=== PATIENT | female | born 1985 | race African-American/Black ===

== ENCOUNTER 2016-05-08 15:37 | Observation (INO) | payer MEDICAID, OTHER ==
[2016-05-08] VITALS (7 sets, daily range): BP systolic 107–128; BP diastolic 59–75; PULSE 69–82; RESP 16–18; TEMP 97.3–98.9; O2SAT 97–100
[~2016-05-08] VITALS: Ht 165.1 cm; Wt 83.0 kg
[~2016-05-08 15:37] MED LIST: IBUP800T23 PO; Z.0.BCPILL PO
--- NOTE | 2016-05-08 15:56 | PD ---
HPI Chief Complaint: Chest Pain Time Seen by Provider: 15:56 Travel History International Travel<30 days: No Contact w/Intl Traveler<30days: No Traveled to known affect area: No History of Present Illness HPI 30-year-old female with no significant medical history, presents to the emergency department today for evaluation of left-sided chest pain. Patient states that the last couple weeks she has been having intermittent sharp pain on the left side of her chest. She got indigestion. She states today it became more noticeable, constant, and pain. She states it went into her left arm and up to her left ear. There is mild nausea associated with it. No vomiting. No shortness of breath. No recent illnesses, fever, or chills. She has no cardiac history herself. Denies illicit drug use. Denies tobacco cigarette smoking or alcohol consumption. Patient states that her mother did have a heart attack in her 40s. She has no other symptoms reported PFSH Past Medical History Cardiovascular Problems: Yes (HEART MURMUR CHILD) Diminished Hearing: No ?: Not LMP: 05/04/16 : 1 Para: 1 Past Surgical History Section: Yes Gynecologic Surgery: Yes (C SECTION ) Tonsillectomy: Yes Social History Alcohol Use: No Tobacco Use: No Substance Use: No Allergies-Medications (Allergen,Severity, Reaction): Coded Allergies: No Known Allergies (Verified , 05/08/16) Reported Meds & Prescriptions Reported Meds & Active Scripts Active Review of Systems Except as stated in HPI: all other systems reviewed are Neg Physical Exam Narrative GENERAL: Well-nourished female patient, ambulatory and in no acute distress SKIN: Warm and dry. HEAD: Atraumatic. Normocephalic. EYES: Pupils equal and round. No scleral icterus. No injection or drainage. ENT: No nasal bleeding or discharge. Mucous membranes pink and moist. NECK: Trachea midline. No JVD. CARDIOVASCULAR: Regular rate and rhythm. No murmur appreciated. RESPIRATORY: No accessory muscle use. Clear to auscultation. Breath sounds equal bilaterally. GASTROINTESTINAL: Abdomen soft, non-tender, nondistended. Hepatic and splenic margins not palpable. MUSCULOSKELETAL: No obvious deformities. No clubbing. No cyanosis. No edema. NEUROLOGICAL: Awake and alert. No obvious cranial nerve deficits. Motor grossly within normal limits. Normal speech. PSYCHIATRIC: Appropriate mood and affect; insight and judgment normal. Data Data Last Documented VS Vital Signs Date Time Temp Pulse Resp B/P Pulse Ox O2 Delivery O2 Flow Rate FiO2 05/08/16 15:58 98 Room Air 05/08/16 15:58 18 05/08/16 15:57 118/68 108/59 05/08/16 15:39 98.4 74 Orders Electrocardiogram (05/08/16 ) Ckmb (Isoenzyme) Profile (05/08/16 15:55) Complete Blood Count With Diff (05/08/16 15:55) Comprehensive Metabolic Panel (05/08/16 15:55) Magnesium (Mg) (05/08/16 15:55) Prothrombin Time / Inr (Pt) (05/08/16 15:55) Act Partial Throm Time (Ptt) (05/08/16 15:55) Troponin I (05/08/16 15:55) Chest, Single Ap (05/08/16 15:55) Ecg Monitoring (05/08/16 15:55) Bilateral Bp Monitoring (05/08/16 15:55) Iv Access Insert/Monitor (05/08/16 15:55) Oximetry (05/08/16 15:55) Oxygen Administration (05/08/16 15:55) Sodium Chloride 0.9% Flush (Ns Flush) (05/08/16 16:00) Ed Urine Pregnancytest Poc (05/08/16 15:55) Urinalysis - C+S If Indicated (05/08/16 15:55) CKMB (05/08/16 16:20) CKMB% (05/08/16 16:20) Urine Culture (05/08/16 16:50) Activity Bed Rest With Brp (05/08/16 18:16) Vital Signs (Adult) Q4H (05/08/16 18:16) Cardiac Rhythm .As Directed (05/08/16 18:16) ^ Notify Dr: Other .PRN (05/08/16 18:16) ^ Notify Dr. Parameters (05/08/16 18:16) Resp Oxygen Nasal Cannula (05/08/16 ) Diet Heart Healthy (05/08/16 Dinner) Ckmb (Isoenzyme) Profile (05/08/16 19:20) Ckmb (Isoenzyme) Profile (05/08/16 22:20) Troponin I (05/08/16 19:20) Troponin I (05/08/16 22:20) Electrocardiogram (05/08/16 18:50) Electrocardiogram (05/08/16 21:50) ^ Obtain (05/08/16 18:16) Sodium Chloride 0.9% Flush (Ns Flush) (05/08/16 18:30) Sodium Chloride 0.9% Flush (Ns Flush) (05/08/16 21:00) Acetaminophen (Tylenol) (05/08/16 18:30) Ondansetron Inj (Zofran Inj) (05/08/16 18:30) Nitroglycerin Sl (Nitrostat Sl) (05/08/16 18:30) Chief Administrative Officer / Telemetry SAÚL.Q8H (05/08/16 18:16) Jabari Bilateral/Knee High SAÚL.QSHIFT (05/08/16 18:16) Admit Order (Ed Use Only) (05/08/16 18:16) Labs Laboratory Tests Test 05/08/16 05/08/16 16:20 16:50 White Blood Count 7.2 TH/MM3 Red Blood Count 3.96 MIL/MM3 Hemoglobin 10.3 GM/DL Hematocrit 31.9 % Mean Corpuscular Volume 80.4 FL Mean Corpuscular Hemoglobin 26.0 PG Mean Corpuscular Hemoglobin 32.3 % Concent Red Cell Distribution Width 15.7 % Platelet Count 266 TH/MM3 Mean Platelet Volume 9.0 FL Neutrophils (%) (Auto) 55.4 % Lymphocytes (%) (Auto) 35.8 % Monocytes (%) (Auto) 7.4 % Eosinophils (%) (Auto) 0.8 % Basophils (%) (Auto) 0.6 % Neutrophils # (Auto) 4.0 TH/MM3 Lymphocytes # (Auto) 2.6 TH/MM3 Monocytes # (Auto) 0.5 TH/MM3 Eosinophils # (Auto) 0.1 TH/MM3 Basophils # (Auto) 0.0 TH/MM3 CBC Comment DIFF FINAL Differential Comment Prothrombin Time 10.3 SEC Prothromb Time International 0.9 RATIO Ratio Activated Partial 28.9 SEC Thromboplast Time Sodium Level 138 MEQ/L Potassium Level 4.5 MEQ/L Chloride Level 107 MEQ/L Carbon Dioxide Level 25.3 MEQ/L Anion Gap 6 MEQ/L Blood Urea Nitrogen 10 MG/DL Creatinine 0.81 MG/DL Estimat Glomerular Filtration 101 ML/MIN Rate Random Glucose 84 MG/DL Calcium Level 8.4 MG/DL Magnesium Level 1.8 MG/DL Total Bilirubin 0.2 MG/DL Aspartate Amino Transf 33 U/L (AST/SGOT) Alanine Aminotransferase 16 U/L (ALT/SGPT) Alkaline Phosphatase 34 U/L Total Creatine Kinase 412 U/L Creatine Kinase MB 0.6 NG/ML Creatine Kinase MB % 0.1 % Troponin I LESS THAN 0.02 NG/ML Total Protein 7.4 GM/DL Albumin 3.0 GM/DL Urine Color YELLOW Urine Turbidity CLEAR Urine pH 6.5 Urine Specific [place] 1.008 Urine Protein TRACE mg/dL Urine Glucose (UA) NEG mg/dL Urine Ketones NEG mg/dL Urine Occult Blood MOD Urine Nitrite NEG Urine Bilirubin NEG Urine Urobilinogen LESS THAN 2.0 MG/DL Urine Leukocyte Esterase NEG Urine RBC /hpf Urine WBC 14 /hpf Urine Squamous Epithelial 1 /hpf Cells Microscopic Urinalysis Comment CULTURE INDICATED MDM Medical Decision Making Medical Screen Exam Complete: Yes Emergency Medical Condition: Yes Medical Record Reviewed: Yes Differential Diagnosis Indigestion versus ACS versus atypical chest pain versus chest wall pain versus pleurisy versus costochondritis Narrative Course 30 year-old female presents to emergency department for evaluation. Patient appears without distress. Her vital signs are stable. EKG is without acute ST elevation or depression, reviewed my attending physician. CBC and CMP are without acute concerns. Hemoglobin is 10.9. Total creatinine since 412. Troponin is less than 0.02. Urinalysis is with moderate occult blood and innumerable RBCs, patient is on her menses cycle. 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 She recommends placing the patient in the chest pain center as observation for further evaluation. Plan is discussed the patient and she is in agreement to this plan of care. Diagnosis Primary Impression: Chest pain Qualified Code: R07.9 - Chest pain, unspecified type Condition: Stable Gabby Marks May 08, 2016 15:56
[2016-05-08] MEDS ORDERED: SODIUM CHLORIDE 0.9% FLUSH 5 ML FLUSH IVF PRN ×2 (16:00→18:30)
--- NOTE | 2016-05-08 17:02 | RADRPT ---
EXAM DATE/TIME: 05/08/2016 16:37 [facility] COMPARISON: CHEST SINGLE AP, December 10, 2015, 15:29. INDICATIONS : Chest pain, shortness of breath for 24 hours MEDICAL HISTORY : None. SURGICAL HISTORY : None. ENCOUNTER: Initial ACUITY: 1 day PAIN SCORE: 6/10 LOCATION: Left chest FINDINGS: A single view of the chest demonstrates the lungs to be symmetrically aerated without evidence of mas s, infiltrate or effusion. The cardiomediastinal contours are unremarkable. Osseous structures are intact. CONCLUSION: The lungs are clear. Irwin Huizar MD on May 08, 2016 at 17:01 Board Certified Radiologist. This report was verified electronically.
[2016-05-08 17:03] LABS: BASOPHIL % 0.6 % (0.0-2.0); EOSINOPHIL # 0.1 TH/MM3 (0-0.4); EOSINOPHIL % 0.8 % (0.0-4.0); HEMATOCRIT 31.9 % (35.0-46.0); HEMO FLAGS DIFF FINAL; LYMPH % 35.8 % (9.0-44.0); LYMPHOCYTE # 2.6 TH/MM3 (1.0-4.8); MEAN CELL VOLUME 80.4 FL (80.0-100.0); MEAN CORPUSCULAR HGB CONC 32.3 % (32.0-36.0); MONO % 7.4 % (0.0-8.0); NEUT % 55.4 % (16.0-70.0); PLATELET COUNT 266 TH/MM3 (150-450); RED BLOOD COUNT 3.96 MIL/MM3 (4.00-5.30); RED CELL DISTRIBUTION WIDTH 15.7 % (11.6-17.2); WHITE BLOOD COUNT 7.2 TH/MM3 (4.0-11.0)
[2016-05-08 17:26] LABS: APTT (PATIENT) 28.9 SEC (24.3-30.1); INTERNATIONAL NORMALIZED RATIO 0.9 RATIO; PROTHROMBIN TIME - PATIENT 10.3 SEC (9.8-11.6)
[2016-05-08 17:36] LABS: ALT (GPT) 16 U/L (10-53); ANION GAP 6 MEQ/L (5-15); AST (GOT) 33 U/L (15-37); BICARBONATE 25.3 MEQ/L (21.0-32.0); BLOOD UREA NITROGEN 10 MG/DL (7-18); CHLORIDE 107 MEQ/L (98-107); GLOMERULAR FILTRATION RATE 101 ML/MIN (>89); MAGNESIUM 1.8 MG/DL (1.5-2.5); POTASSIUM 4.5 MEQ/L (3.5-5.1); SODIUM (NA) 138 MEQ/L (136-145)
[2016-05-08 17:41] LABS: ALKALINE PHOSPHATASE 34 U/L (45-117); CREATINE KINASE 412 U/L (26-192); TOTAL BILIRUBIN ADULT 0.2 MG/DL (0.2-1.0)
[2016-05-08 17:43] LABS: BLOOD, URINE MOD (NEG); COMMENT (UR) CULTURE INDICATED; CULTURE IF INDICATED CULTURE INDICATED; GLUCOSE,URINE NEG (NEG); KETONE, URINE NEG (NEG); NITRITE,URINE NEG (NEG); PH, URINE 6.5 (5.0-8.5); SQUAMOUS EPITHELIAL CELL URINE 1 /hpf (0-5); URINE COLOR YELLOW (YELLW/STRAW)
[2016-05-08 17:53] LABS: CKMB 0.6 NG/ML (0.5-3.6)
[2016-05-08] MEDS ORDERED: OFFICE MEDICATION (18:20)
--- NOTE | 2016-05-08 18:29 | PD ---
Physical Exam Date Seen by Provider: May 08, 2016 Time Seen by Provider: 17:00 Narrative I, Dr. Awad, have reviewed the advance practice practitioner's documentation and am in agreement, met with the patient face to face, made the diagnosis, and the medical decision making was done by me. *My assessment and Findings: Patient seen and evaluated with PA, has previous family history of [place], mother at age of 40, patient coming in with left sided chest pain radiating to the neck and arm. EKG initially did not show any signs of acute ST-T changes. Pulses are present and equal bilaterally. Pulmonary exam is unremarkable. Abdominal exam is unremarkable. Laboratory Tests Test 05/08/16 05/08/16 16:20 16:50 Red Blood Count 3.96 MIL/MM3 (4.00-5.30) Hemoglobin 10.3 GM/DL (11.6-15.3) Hematocrit 31.9 % (35.0-46.0) Mean Corpuscular Hemoglobin 26.0 PG (27.0-34.0) Calcium Level 8.4 MG/DL (8.5-10.1) Alkaline Phosphatase 34 U/L (45-117) Total Creatine Kinase 412 U/L (26-192) Troponin I LESS THAN 0.02 NG/ML (0.02-0.05) Albumin 3.0 GM/DL (3.4-5.0) Urine Occult Blood MOD (NEG) Urine WBC 14 /hpf (0-5) Last 24 hours Impressions Chest X-Ray 05/08/16 1555 Signed Impressions: Service Date/Time: Sunday, May 08, 2016 16:37 - CONCLUSION: The lungs are clear. Irwin Huizar MD Initial cardiac enzymes are negative. Vital signs are stable in the ER. Chest x-ray did not show any signs of acute pulmonary processes. At this point, my plan would be to admit her for further evaluation her chest pain. Data Data Last Documented VS Vital Signs Date Time Temp Pulse Resp B/P Pulse Ox O2 Delivery O2 Flow Rate FiO2 05/08/16 15:58 98 Room Air 05/08/16 15:58 18 05/08/16 15:57 118/68 108/59 05/08/16 15:39 98.4 74 Orders Electrocardiogram (05/08/16 ) Ckmb (Isoenzyme) Profile (05/08/16 15:55) Complete Blood Count With Diff (05/08/16 15:55) Comprehensive Metabolic Panel (05/08/16 15:55) Magnesium (Mg) (05/08/16 15:55) Prothrombin Time / Inr (Pt) (05/08/16 15:55) Act Partial Throm Time (Ptt) (05/08/16 15:55) Troponin I (05/08/16 15:55) Chest, Single Ap (05/08/16 15:55) Ecg Monitoring (05/08/16 15:55) Bilateral Bp Monitoring (05/08/16 15:55) Iv Access Insert/Monitor (05/08/16 15:55) Oximetry (05/08/16 15:55) Oxygen Administration (05/08/16 15:55) Sodium Chloride 0.9% Flush (Ns Flush) (05/08/16 16:00) Ed Urine Pregnancytest Poc (05/08/16 15:55) Urinalysis - C+S If Indicated (05/08/16 15:55) CKMB (05/08/16 16:20) CKMB% (05/08/16 16:20) Urine Culture (05/08/16 16:50) Activity Bed Rest With Brp (05/08/16 18:16) Vital Signs (Adult) Q4H (05/08/16 18:16) Cardiac Rhythm .As Directed (05/08/16 18:16) ^ Notify Dr: Other .PRN (05/08/16 18:16) ^ Notify Dr. Parameters (05/08/16 18:16) Resp Oxygen Nasal Cannula (05/08/16 ) Diet Heart Healthy (05/08/16 Dinner) Ckmb (Isoenzyme) Profile (05/08/16 19:20) Ckmb (Isoenzyme) Profile (05/08/16 22:20) Troponin I (05/08/16 19:20) Troponin I (05/08/16 22:20) Electrocardiogram (05/08/16 18:50) Electrocardiogram (05/08/16 21:50) ^ Obtain (05/08/16 18:16) Sodium Chloride 0.9% Flush (Ns Flush) (05/08/16 18:30) Sodium Chloride 0.9% Flush (Ns Flush) (05/08/16 21:00) Acetaminophen (Tylenol) (05/08/16 18:30) Ondansetron Inj (Zofran Inj) (05/08/16 18:30) Nitroglycerin Sl (Nitrostat Sl) (05/08/16 18:30) Ornamental Iron Worker / Telemetry SAÚL.Q8H (05/08/16 18:16) Jabari Bilateral/Knee High SAÚL.QSHIFT (05/08/16 18:16) Admit Order (Ed Use Only) (05/08/16 18:16) Labs Laboratory Tests Test 05/08/16 05/08/16 16:20 16:50 White Blood Count 7.2 TH/MM3 Red Blood Count 3.96 MIL/MM3 Hemoglobin 10.3 GM/DL Hematocrit 31.9 % Mean Corpuscular Volume 80.4 FL Mean Corpuscular Hemoglobin 26.0 PG Mean Corpuscular Hemoglobin 32.3 % Concent Red Cell Distribution Width 15.7 % Platelet Count 266 TH/MM3 Mean Platelet Volume 9.0 FL Neutrophils (%) (Auto) 55.4 % Lymphocytes (%) (Auto) 35.8 % Monocytes (%) (Auto) 7.4 % Eosinophils (%) (Auto) 0.8 % Basophils (%) (Auto) 0.6 % Neutrophils # (Auto) 4.0 TH/MM3 Lymphocytes # (Auto) 2.6 TH/MM3 Monocytes # (Auto) 0.5 TH/MM3 Eosinophils # (Auto) 0.1 TH/MM3 Basophils # (Auto) 0.0 TH/MM3 CBC Comment DIFF FINAL Differential Comment Prothrombin Time 10.3 SEC Prothromb Time International 0.9 RATIO Ratio Activated Partial 28.9 SEC Thromboplast Time Sodium Level 138 MEQ/L Potassium Level 4.5 MEQ/L Chloride Level 107 MEQ/L Carbon Dioxide Level 25.3 MEQ/L Anion Gap 6 MEQ/L Blood Urea Nitrogen 10 MG/DL Creatinine 0.81 MG/DL Estimat Glomerular Filtration 101 ML/MIN Rate Random Glucose 84 MG/DL Calcium Level 8.4 MG/DL Magnesium Level 1.8 MG/DL Total Bilirubin 0.2 MG/DL Aspartate Amino Transf 33 U/L (AST/SGOT) Alanine Aminotransferase 16 U/L (ALT/SGPT) Alkaline Phosphatase 34 U/L Total Creatine Kinase 412 U/L Creatine Kinase MB 0.6 NG/ML Creatine Kinase MB % 0.1 % Troponin I LESS THAN 0.02 NG/ML Total Protein 7.4 GM/DL Albumin 3.0 GM/DL Urine Color YELLOW Urine Turbidity CLEAR Urine pH 6.5 Urine Specific [place] 1.008 Urine Protein TRACE mg/dL Urine Glucose (UA) NEG mg/dL Urine Ketones NEG mg/dL Urine Occult Blood MOD Urine Nitrite NEG Urine Bilirubin NEG Urine Urobilinogen LESS THAN 2.0 MG/DL Urine Leukocyte Esterase NEG Urine RBC /hpf Urine WBC 14 /hpf Urine Squamous Epithelial 1 /hpf Cells Microscopic Urinalysis Comment CULTURE INDICATED MDM Medical Record Reviewed: Yes Supervised Visit with BRANDI: Yes Diagnosis Primary Impression: Chest pain Qualified Code: R07.9 - Chest pain, unspecified type Admitting Information Admitting Physician Requests: Admit Condition: Stable Ad Awad MD May 08, 2016 18:29
[2016-05-08] MEDS ORDERED: ACETAMINOPHEN 500 MG CPLT PO PRN (18:30)
[2016-05-08] MEDS ORDERED: ONDANSETRON HCL 4 MG/2 ML VIAL IV PRN (18:30)
[2016-05-08] MEDS ORDERED: TEMAZEPAM 15 MG CAP PO PRN (20:15)
[2016-05-08] MEDS ORDERED: IBUPROFEN 800 MG TAB PO PRN (20:15)
[2016-05-08 20:33] LABS: CREATINE KINASE 403 U/L (26-192)
[2016-05-08 20:46] LABS: CKMB 0.7 NG/ML (0.5-3.6)
[2016-05-08] MEDS: SODIUM CHLORIDE 0.9% FLUSH 5 ML FLUSH IVF SCH (21:18)
[2016-05-08] MEDS: NITROGLYCERIN 0.4 MG SL 25 TABS/BTL SL PRN ×2 (21:18→22:50)
[2016-05-08 23:19] LABS: CREATINE KINASE 361 U/L (26-192)
[2016-05-08 23:31] LABS: CKMB LESS THAN 0.5 NG/ML (0.5-3.6)
[2016-05-09] VITALS (8 sets, daily range): BP systolic 114–120; BP diastolic 57–70; PULSE 61–84; RESP 18–20; TEMP 97.4–98.3; O2SAT 97–98
[2016-05-09] MEDS: SODIUM CHLORIDE 0.9% FLUSH 5 ML FLUSH IVF SCH (08:47)
[2016-05-09] MEDS ORDERED: ASPIRIN 325 MG TAB PO SCH (09:00)
--- NOTE | 2016-05-09 12:36 | EKG ---
Date Performed: 05/08/2016 Time Performed: 15:49:31 PTAGE: 30 years EKG: Sinus rhythm NORMAL ECG PREVIOUS TRACING : 12/10/2015 15.24 DOCTOR: Nate Agustin Interpretating Date/Time 05/09/2016 12:34:31
--- NOTE | 2016-05-09 12:37 | EKG ---
Date Performed: 05/08/2016 Time Performed: 18:48:57 PTAGE: 30 years EKG: Sinus rhythm NORMAL ECG PREVIOUS TRACING : 05/08/2016 15.49 DOCTOR: Nate Agustin Interpretating Date/Time 05/09/2016 12:35:47
--- NOTE | 2016-05-09 12:37 | EKG ---
Date Performed: 05/08/2016 Time Performed: 22:24:03 PTAGE: 30 years EKG: Sinus rhythm NORMAL ECG PREVIOUS TRACING : 05/08/2016 18.48 DOCTOR: Nate Agustin Interpretating Date/Time 05/09/2016 12:36:35
--- NOTE | 2016-05-09 12:44 | TR ---
Date Performed: 05/09/2016 Time Performed: 09:25:30 DOCTOR: Nate Agustin DRUG LIST: CLINICAL HISTORY: REASON FOR TEST: REASON FOR ENDING: OBSERVATION: CONCLUSION: Amanuel protocol completed. Stopped sec to reaching target heart rate and leg fatigue. Maximum WO=464 Target UP=479 Maximum DA=194/88 Total Exercise Time=8:41. No ectopy. No st t changes to sugg ischemia. Good exercise tolerance. Normal bp response. Recovery quick and unremarkable. COMMENTS: CONCLUSION: Normal exercise treadmill. No evidence of ischemia.
--- NOTE | 2016-05-09 13:02 | MH ---
cc: RAMU SARAH DATE OF ADMISSION: 05/08/2016 DATE OF : 1985 CHIEF COMPLAINT: Chest pain. HISTORY OF PRESENT ILLNESS: This is a 30 year-old patient with no significant past medical history, presents to the emergency room for further evaluation of chest pain for the past three days. The location is in her left axillary area, characterized as a pain coming from front to back of her chest. The patient describes the pain as a sharp pain that has been constant for the past three days, however, yesterday there was radiation to her left arm, left jaw, left ear and left shoulder and also noticed her vision was blurred. Associated symptoms included mild shortness of breath and lightheadedness. She denied any nausea, vomiting or diaphoresis. It did not hurt necessarily to take a big deep breath in. No known precipitating factors. She has not recently traveled or has had trauma to the area. She states she has had chest discomfort in the past and was actually evaluated in this emergency room and was told to take Motrin. She had some Motrin left over and has been taking that for the past couple of days with some relief, however, not total relieved and was encouraged by her aunt to come in for further evaluation. No known preciptating factors or relieving factors. PAST MEDICAL HISTORY: None. PAST SURGICAL HISTORY: 1. 2. Tonsillectomy. FAMILY HISTORY: Mother had a heart attack in her mid 40s. She is still alive. She has hypertension and diabetes. Father has hypertension and diabetes. Brother hypertension and a sister recently diagnosed with type 2 diabetes, and she is younger than the patient. SOCIAL HISTORY: She is a lifelong nonsmoker. Denies any alcohol or illegal drug use. No known hypertension, diabetes or hyperlipidemia. She works at [employer] and also a [employer] center and has a 5 year-old son. Other than working and taking care of her young son, she has not performed any daily exercise. PAST CARDIAC TESTING None. She was seen in the emergency room April 2015. At that time a mandatory outpatient cardiology consult was made for possible further testing with a Holter monitor and stress test. The patient did not follow with a clinical engineer as her pain improved with the Motrin. ALLERGIES: None. MEDICATIONS: The only medications she takes is her control and One-A-Day multivitamin. REVIEW OF SYSTEMS: GENERAL: She has been in a general state of health with no recent illness or travel. No malaise, fever, chills or change in appetite. HEENT: No headache, or vision changes, otherwise as stated above. No nasal congestion, drainage or dysphagia. She has been known to have headaches in the past which she describes as migraines. CARDIAC: As stated above. Continues to have some chest discomfort in her left anterior chest and into her axillary area, left arm, and jaw pain. All improved. No intermittent leg pain. Dizziness is also improved, actually is gone. RESPIRATORY: No shortness of breath, cough, wheezing or hemoptysis. No recent upper respiratory infection. ABDOMEN: No diarrhea, constipation, pain, distension, blood in stool or dark stool. No nausea or vomiting. : No dysuria, urgency, frequency or hematuria. She was told in the emergency room that she has a urinary tract infection, however, UA was collected and the patient is currently on her menses and she does not have any symptoms or known frequent urinary tract infection. EXTREMITIES: No lower leg edema or pain. MUSCULOSKELETAL: No change in ROM. NEUROLOGIC: No difficulty with balance, motor or sensory deficits, loss of consciousness, seizure activity. PSYCHIATRIC: No anxiety or depression. Her family has mentioned maybe her pain is from stress. SKIN: No rashes or concerning lesions. PHYSICAL EXAMINATION: VITAL SIGNS: Temperature 98.3, pulse 74, respiratory rate 18, blood pressure 120/57, 98% on room air. GENERAL: Alert, well-developed, well-nourished, in no acute distress, pleasant -[place] female. HEAD: Normocephalic, atraumatic. EYES: Sclera clear. Conjunctivae without injection. ENT: Mucous membranes are pink and moist. NECK: Supple. Trachea midline. CARDIOVASCULAR: Regular rate and rhythm without murmurs, rubs, or gallops. S1-S2, no S3-S4. No JVD. RESPIRATORY: Clear lungs throughout bilateral with no crackles, wheeze or rhonchi. She is nonlabored, able to speak in full sentences with symmetrical chest rise. ABDOMEN: Soft, non-tender, non-distended. No masses. Positive bowel tones. BACK: No CVA tenderness. No scoliosis. EXTREMITIES: Pulses +2 x4, no dependent edema. MUSCULOSKELETAL: Normal tone x4. Nontender. No obvious deformities. NEUROLOGIC: CN II-XII is grossly intact. Motor strength 5/5. PSYCHIATRIC: Alert, oriented x3. Pleasant affect. ADDENDUM LABORATORY: Hemoglobin is 10.3, hematocrit of 31.9, MCH 26 otherwise unremarkable. Chemistry also unremarkable. Albumin is 3.0, TSH is within normal limits. Erythrocyte sedimentation rate 55. Coagulation is unremarkable. Rheumatoid factor and MARY screen are negative. UA completed showed moderate to call blood in urine WBCs of 14, however sample was collected while the patient is on her menses Chest x-ray Read by radiologist has conclusion of the lungs are clear and a CT of her head has a conclusion of normal examination for the patient of this age. Three EKG's show normal sinus rhythm with no ST or T segment changes. ASSESSMENT/PLAN 1. Chest pain. The patient has been admitted to the chest pain center was ruled out with three sets of EKG's, cardiac enzymes and was monitored overnight. She was seen and evaluated by Dr. Ramu Sarah and underwent an exercise stress test. This was essentially unremarkable and did not suggest ischemia. She has been encouraged to establish with a primary care provider and will be later discharged this afternoon. 2. Anemia. Iron studies and a ferritin level have been ordered to a.m. labs, she will be encouraged to take an [id number] iron tablet daily. 3. Positive urinalysis again this sample was taken while on her menses and she is not having any signs or symptoms of urinary tract infection including dysuria, frequency or urgency or hematuria. 4. Migraines a head CT scan was ordered and is unremarkable. Discussed with the patient importance of following with the DOCK SUPERVISOR and to discuss possible different control methods. Dictated by NATALIO Burns Ramu Sarah MD [facility]/JESS /9:02 AM /3:05 PM
[2016-05-09 14:11] LABS: RHEUMATOID FACTOR TRIGGER LESS THAN 10.0 IU/ML (0.0-14.9); TRANSFERRIN IRON PROFILE 400 MG/DL (200-360)
[2016-05-09 14:14] LABS: FERRITIN 5 NG/ML (8-252)
--- NOTE | 2016-05-09 14:24 | RADRPT ---
EXAM DATE/TIME: 05/09/2016 14:16 [facility] COMPARISON: No previous studies available for comparison. INDICATIONS : Headache. RADIATION DOSE: 48.30 CTDIvol (mGy) MEDICAL HISTORY : Cardiovascular disease. SURGICAL HISTORY : None. ENCOUNTER: Initial ACUITY: 1 day PAIN SCALE: 3/10 LOCATION: cranial TECHNIQUE: Multiple contiguous axial images were obtained of the head. Using automated exposure control and adj ustment of the mA and/or kV according to patient size, radiation dose was kept as low as reasonably a chievable to obtain optimal diagnostic quality images. FINDINGS: CEREBRUM: The ventricles are normal for age. No evidence of midline shift, mass lesion, hemorrhage or acute in farction. No extra-axial fluid collections are seen. POSTERIOR FOSSA: The cerebellum and brainstem are intact. The 4th ventricle is midline. The cerebellopontine angle i s unremarkable. EXTRACRANIAL: The visualized portion of the orbits is intact. SKULL: The calvaria is intact. No evidence of skull fracture. CONCLUSION: Normal examination for a patient of this age. Alfonzo Bhandari MD on May 09, 2016 at 14:22 Board Certified Radiologist. This report was verified electronically.
[2016-05-09] MEDS ORDERED: FERR325T PO (14:37)
--- NOTE | 2016-05-09 14:39 | HHI.DCPOC ---
Discharge Care Plan Diagnosis: (1) Musculoskeletal chest pain (2) Migraine headache (3) Anemia Goals to Promote Your Health * To prevent worsening of your condition and complications * To maintain your health at the optimal level Directions to Meet Your Goals Take your medications as prescribed Follow your dietary instruction Follow activity as directed Keep your appointments as scheduled Take your immunizations and boosters as scheduled If your symptoms worsen call your PCP, if no PCP go to Urgent Care Center or Emergency Room Smoking is Dangerous to Your Health. Avoid second hand smoke Call the 24-hour hour crisis hotline for domestic abuse at [facility] May 09, 2016 14:39
== END 2016-05-09 16:09 | disposition home or self-care (01) ==
LOC: NEPA 15:37 → NEDA 18:19 → NEPGCP 19:37
PROVIDERS: ADMIT Family Medicine; ATTEND Family Medicine
DX: R07.9 Chest pain, unspecified (principal); G43.909 Migraine, unspecified, not intractable, without status migrainosus; D64.9 Anemia, unspecified; N39.0 Urinary tract infection, site not specified; B96.89 Other specified bacterial agents as the cause of diseases classified elsewhere; Z82.49 Family history of ischemic heart disease and other diseases of the circulatory system
CPT/HCPCS: 70450; 71010; 80053; 81001; 82550; 82552; 82728; 83540; 83550; 83735; 84443; 84484; 84703; 85025; 85610; 85652; 85730; 86038; 86140; 86430; 87086; 93005; 93017; 99285; G0378

== ENCOUNTER 2017-04-02 17:00 | Emergency (ER) | payer MEDICAID, OTHER ==
[~2017-04-02 17:00] MED LIST changes: +FERR325T PO; -IBUP800T23 PO; +OFFICE MEDICATION; -Z.0.BCPILL PO
[2017-04-02 17:01] VITALS: BP 129/79; PULSE 80; RESP 14; TEMP 98.7; O2SAT 98
[2017-04-02] MEDS ORDERED: SEASTAB2 PO (18:54)
[2017-04-02] MEDS ORDERED: AMOX875T PO (19:18)
--- NOTE | 2017-04-02 19:22 | PD ---
HPI Chief Complaint: Cold / Flu Symptoms Time Seen by Provider: 19:18 Travel History International Travel<30 days: No Contact w/Intl Traveler<30days: No Traveled to known affect area: No History of Present Illness HPI This was examined in the presence of a female nurse. 31-year-old female presents with left ear pain and sore throat. Symptom onset 1 week ago. She describes the pain as a sharp pain which is constant, worse when swallowing. She denies any discharge from the ear, denies any fevers or chills, cough or congestion, rash, recent travel, recent swimming. No sick contacts. No other complaints at this time. PFSH Past Medical History Medical History: Denies Significant Hx Heart Rhythm Problems: No Cardiac Catheterization: No Cardiovascular Problems: Yes (HEART MURMUR CHILD) High Cholesterol: No Congestive Heart Failure: No Diabetes: No Diminished Hearing: No Tetanus Vaccination: > 5 Years Influenza Vaccination: No ?: Not LMP: one month ago : 1 Para: 1 Past Surgical History Section: Yes Coronary Artery Bypass Graft: No Gynecologic Surgery: Yes (C SECTION ) Tonsillectomy: Yes Family History Family Myocardial Infarction: Yes (mother mid 40-s) Social History Alcohol Use: No Tobacco Use: No Substance Use: No Allergies-Medications (Allergen,Severity, Reaction): Coded Allergies: No Known Allergies (Verified Adverse Reaction, Unknown, 04/02/17) Reported Meds & Prescriptions Reported Meds & Active Scripts Active Amoxicillin 875 Mg Tab 875 Mg PO BID 10 Days Reported Seasonique (Levonorgestrel-Ethinyl Estradiol) 0.15-0.03-0.01 Mg Tab 1 Tab PO DAILY Review of Systems Except as stated in HPI: all other systems reviewed are Neg Physical Exam Narrative GENERAL: Well-developed well-nourished female in no acute distress SKIN: Warm and dry. HEAD: Atraumatic. Normocephalic. EYES: Pupils equal and round. No scleral icterus. No injection or drainage. ENT: No nasal bleeding or discharge. Mucous membranes pink and moist. The left tympanic membrane is bulging and erythematous. There is no oropharyngeal erythema or exudate. There is no auricular tenderness. There is no mastoid tenderness. NECK: Trachea midline. No JVD. No lymphadenopathy. CARDIOVASCULAR: Regular rate and rhythm. No murmur appreciated. RESPIRATORY: No accessory muscle use. Clear to auscultation. Breath sounds equal bilaterally. Data Data Last Documented VS Vital Signs Date Time Temp Pulse Resp B/P (MAP) Pulse Ox O2 Delivery O2 Flow Rate FiO2 04/02/17 17:01 98.7 80 14 129/79 (96) 98 MDM Medical Decision Making Medical Screen Exam Complete: Yes Emergency Medical Condition: Yes Medical Record Reviewed: Yes Differential Diagnosis Otitis media, otitis externa, eustachian tube dysfunction, perforated tympanic membrane, referred dental pain, mastoiditis, pharyngitis, tonsillitis Narrative Course Examination is consistent with left otitis media. The patient is being discharged with amoxicillin. Diagnosis Primary Impression: Left otitis media Additional Instructions: Medication as prescribed. Take Tylenol or Motrin for pain. Stay well hydrated well-nourished. Use other forms of contraception while on amoxicillin. Med/Other Pt SpecificInfo: Prescription(s) given Scripts Amoxicillin (Amoxicillin) 875 Mg Tab 875 MG PO BID for Infection for 10 Days, #20 TAB 0 Refills Prov: Bubba Ding MD 04/02/17 Disposition: 01 DISCHARGE HOME Condition: Stable Felix Kelly Apr 02, 2017 19:22
== END 2017-04-02 19:41 | disposition home or self-care (01) ==
LOC: NEPD 17:00
DX: H66.92 Otitis media, unspecified, left ear (principal); J02.9 Acute pharyngitis, unspecified
CPT/HCPCS: 99283

== ENCOUNTER 2017-06-02 09:15 | Emergency (ER) | payer OTHER, MEDICAID ==
[~2017-06-02 09:15] MED LIST changes: +AMOX875T PO; -FERR325T PO; -OFFICE MEDICATION; +SEASTAB2 PO
[2017-06-02 09:16] VITALS: BP 141/58; PULSE 97; RESP 12; TEMP 97.9; O2SAT 99
[2017-06-02] MEDS ORDERED: METHOCARBAMOL 500 MG TAB PO ONE (10:45)
[2017-06-02] MEDS ORDERED: IBUPROFEN 800 MG TAB PO ONE (10:45)
[2017-06-02] MEDS ORDERED: IBUP1TAB7 PO (10:49)
[2017-06-02] MEDS ORDERED: ROBA500T PO (10:49)
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
== END 2017-06-02 11:05 | disposition home or self-care (01) ==
LOC: NEPD 09:15
DX: S16.1XXA Strain of muscle, fascia and tendon at neck level, initial encounter (principal); R51 Headache; V43.52XA Car driver injured in collision with other type car in traffic accident, initial encounter
CPT/HCPCS: 99283